=== PATIENT | female | born 1990 | race Native Hawaiian/Other Pacific Islander ===

== ENCOUNTER 2021-05-03 17:40 | Emergency (ER) | payer OTHER ==
[~2021-05-03] VITALS: Ht 162.6 cm; Wt 77.1 kg
[2021-05-03 18:52] LABS: PLATELET COUNT 286 K/uL (152-353)
[2021-05-03 19:17] LABS: POTASSIUM 3.8 mmol/L (3.6-5.2)
[2021-05-03 19:20] LABS: PARTIAL THROMBOPLASTIN TIME 27.4 SECONDS (24.5-33.6)
[2021-05-03 23:57] VITALS: BP 122/70; TEMP 97.9
== END 2021-05-03 23:57 | disposition home or self-care (01) ==
LOC: ED 17:40
PROVIDERS: Emergency Medicine
DX: S30.1XXA Contusion of abdominal wall, initial encounter (principal); S30.0XXA Contusion of lower back and pelvis, initial encounter; S80.11XA Contusion of right lower leg, initial encounter; V53.6XXA Passenger in pick-up truck or van injured in collision with car, pick-up truck or van in traffic accident, initial encounter; Y92.488 Other paved roadways as the place of occurrence of the external cause
CPT/HCPCS: 36415; 80048; 85027; 85610; 85730; 93005; 96374; 99284; J1885

== ENCOUNTER 2022-03-15 10:14 | Emergency (ER) | payer OTHER ==
[~2022-03-15] VITALS: Ht 165.1 cm; Wt 72.6 kg
[2022-03-15 10:20] VITALS: TEMP 98.5
[2022-03-15 12:10] VITALS: BP 112/64
== END 2022-03-15 12:11 | disposition home or self-care (01) ==
LOC: ED 10:14
DX: S40.011A Contusion of right shoulder, initial encounter (principal); W18.39XA Other fall on same level, initial encounter; Y92.098 Other place in other non-institutional residence as the place of occurrence of the external cause
CPT/HCPCS: 81025; 96372; 99283; J1885

== ENCOUNTER 2022-11-19 17:43 | Emergency (ER) | payer OTHER ==
[~2022-11-19] VITALS: Ht 165.1 cm; Wt 74.8 kg
[2022-11-19 17:47] VITALS: BP 119/86; TEMP 98.6
== END 2022-11-19 18:40 | disposition home or self-care (01) ==
LOC: ED 17:43
DX: S46.011A Strain of muscle(s) and tendon(s) of the rotator cuff of right shoulder, initial encounter (principal); M25.511 Pain in right shoulder; W19.XXXA Unspecified fall, initial encounter; T67.5XXA Heat exhaustion, unspecified, initial encounter; R55 Syncope and collapse
CPT/HCPCS: 99282